=== PATIENT | female | born 1985 | race Caucasian/White ===

== ENCOUNTER 2020-05-12 10:07 | Inpatient (IN) | payer OTHER, SELFPAY ==
[2020-05-12] VITALS (149 sets, daily range): BP systolic 77–135; BP diastolic 40–102; PULSE 66–271; RESP 16–20; TEMP 36.4–37.3; O2SAT 95–100; BMI 33.0
--- NOTE | 2020-05-12 11:30 | LDADM ---
This patient, Mary Beth Abernathy, was admitted to Labor/Delivery/Recovery 109 on 05/12/20 at 10:07. Plans for labor, pain management and were discussed with patient. Patient/family oriented to hospital policies and general routines including ID bracelet, bed and alarms, visiting hours, pain management, procedures, bathroom and other care routines, personal items, smoking policy, room service/diet and guest tray routines, security routines, and visiting hours. Patient/Family are encouraged to report perceived risks to care and to ask questions if they do not understand what they are told or what they should do. See OBIX for further documentation.
[2020-05-12 11:53] LABS: Basophils Percent Auto 0.4 % (0.2-1.2); Eosinophils Absolute Auto 0.1 K/mm3 (0-0.3); Eosinophils Percent Auto 0.6 % (0-4.4); Hematocrit 29.4 % (37.0-47.0); Hemoglobin 9.8 g/dL (12.0-15.0); Immature Granulocyte Absolute 0.11 K/mm3 (0.00-0.031); Lymphocytes Absolute Auto 2.09 K/mm3 (0.9-3.2); Lymphocytes Percent Auto 19.3 % (18.3-44.2); Mean Corpuscular HGB Conc 33.3 g/dl (32-36); Mean Corpuscular Hemoglobin 27.5 pg (26-34); Mean Corpuscular Volume 82.6 fl (80-100); Mean Platelet Volume 11.6 fl (7.4-10.4); Monocytes Absolute Auto 0.9 K/mm3 (0.1-0.6); Monocytes Percent Auto 7.8 % (2.6-8.5); Neutrophils Absolute Auto 7.7 K/mm3 (1.3-6.7); Neutrophils Percent Auto 70.9 % (45.5-73.1); Platelet Count Result 194 k/mm3 (150-375); Red Blood Count 3.56 M/mm3 (4.2-5.4); White Blood Count 10.9 K/mm3 (4.5-10.0)
[2020-05-12] MEDS: LACTATED RINGERS 1,000 ML 125 ML IV CONT ×3 (11:54→16:09)
[2020-05-12] MEDS: OXYTOCIN 30 UNITS/NS 500 ML 30 UNITS/500 ML BAG IV CONT (11:54)
--- NOTE | 2020-05-12 12:16 | PM.OBPNLAB ---
Pain Control Date/time seen: 05/12/20 12:16 SVE /-2 AROM small amount of odorless fluid
--- NOTE | 2020-05-12 12:22 | WPDANESEPP ---
Anes - Eval Pre Procedure Date/Time: 05/12/20 12:22 Pre Op Diagnosis: Induction of Labor Patient Data Age: 34 Gender: F Height: Weight: Last Vital Signs Pulse 83 05/12/20 12:00 BP 129/74 05/12/20 12:00 Allergies Allergy/AdvReac Type Severity Reaction Status Date / Time Sulfa (Sulfonamide Allergy Severe THROAT Verified 07/31/17 20:45 Antibiotics) SWELLING Home Medications Medication Instructions Recorded Confirmed Type PNV cmb#95-ferrous fumarate-FA 1 tablet PO DAILY 04/20/20 04/20/20 History [] ferrous sulfate [Iron (ferrous 325 mg PO DAILY 04/20/20 04/20/20 History sulfate)] Laboratory Tests 05/12/20 05/12/20 11:36 11:36 WBC 10.9 K/mm3 H K/mm3 (4.5-10.0) RBC 3.56 M/mm3 L M/mm3 (4.2-5.4) Hgb 9.8 g/dL L g/dL (12.0-15.0) Hct 29.4 % L % (37.0-47.0) MCV 82.6 fl fl (80-100) MCH 27.5 pg pg (26-34) MCHC 33.3 g/dl g/dl (32-36) RDW 14.0 % % (11.5-14.5) Plt Count 194 k/mm3 k/mm3 (150-375) MPV 11.6 fl H fl (7.4-10.4) Immature Gran % (Auto) 1.0 % H % (0-0.5) Neut % (Auto) 70.9 % % (45.5-73.1) Lymph % (Auto) 19.3 % % (18.3-44.2) [place] % (Auto) 7.8 % % (2.6-8.5) Eos % (Auto) 0.6 % % (0-4.4) Baso % (Auto) 0.4 % % (0.2-1.2) Lymph # (Auto) 2.09 K/mm3 K/mm3 (0.9-3.2) [place] # (Auto) 0.9 K/mm3 H K/mm3 (0.1-0.6) Eos # (Auto) 0.1 K/mm3 K/mm3 (0-0.3) Baso # (Auto) 0.0 K/mm3 K/mm3 (0.0-0.1) Abs Immat Gran (auto) 0.11 K/mm3 H K/mm3 (0.00-0.031) Absolute Neuts (auto) 7.7 K/mm3 H K/mm3 (1.3-6.7) Absolute Nucleated RBC 0.0 K/mm3 K/mm3 (0.0-0.012) Nucleated RBC % 0.0 % % (0.0-0.2) RPR Pending [facility] Family History Family History (Updated 04/20/20 @ 16:06 by Marylou Daniels RN) Mother Asthma Father Diabetes mellitus Prostate carcinoma Grandparent Diabetes mellitus Social History Social History Substance use: never Gender identity (if verbalized by the patient): Female Spiritual care concerns: No ([employer]) Exam Day of Procedure 05/12/20 12:22
[2020-05-12] MEDS: ePHEDrine sulfate INJ 50 MG/ML AMPUL (14:10)
--- NOTE | 2020-05-12 14:14 | WPDANESEPPF ---
Anes - Initial Pre Proc Eval Date/Time: 05/12/20 14:14 Surgeon: John Sears MD Pre Op Diagnosis: Induction of Labor Patient Data Age: 34 Gender: F Height: 5 ft 4 in Weight: 87.3 kg Last Vital Signs Temp 37.3 C 05/12/20 11:54 Pulse 82 05/12/20 14:12 BP 107/60 05/12/20 14:12 Pulse Ox 100 05/12/20 14:13 Allergies Allergy/AdvReac Type Severity Reaction Status Date / Time Sulfa (Sulfonamide Allergy Severe THROAT Verified 07/31/17 20:45 Antibiotics) SWELLING Home Medications Medication Instructions Recorded Confirmed Type PNV cmb#95-ferrous fumarate-FA 1 tablet PO DAILY 04/20/20 04/20/20 History [] ferrous sulfate [Iron (ferrous 325 mg PO DAILY 04/20/20 05/12/20 History sulfate)] Laboratory Tests 05/12/20 05/12/20 05/12/20 11:36 11:36 11:36 WBC 10.9 K/mm3 H K/mm3 (4.5-10.0) RBC 3.56 M/mm3 L M/mm3 (4.2-5.4) Hgb 9.8 g/dL L g/dL (12.0-15.0) Hct 29.4 % L % (37.0-47.0) MCV 82.6 fl fl (80-100) MCH 27.5 pg pg (26-34) MCHC 33.3 g/dl g/dl (32-36) RDW 14.0 % % (11.5-14.5) Plt Count 194 k/mm3 k/mm3 (150-375) MPV 11.6 fl H fl (7.4-10.4) Immature Gran % (Auto) 1.0 % H % (0-0.5) Neut % (Auto) 70.9 % % (45.5-73.1) Lymph % (Auto) 19.3 % % (18.3-44.2) [place] % (Auto) 7.8 % % (2.6-8.5) Eos % (Auto) 0.6 % % (0-4.4) Baso % (Auto) 0.4 % % (0.2-1.2) Lymph # (Auto) 2.09 K/mm3 K/mm3 (0.9-3.2) [place] # (Auto) 0.9 K/mm3 H K/mm3 (0.1-0.6) Eos # (Auto) 0.1 K/mm3 K/mm3 (0-0.3) Baso # (Auto) 0.0 K/mm3 K/mm3 (0.0-0.1) Abs Immat Gran (auto) 0.11 K/mm3 H K/mm3 (0.00-0.031) Absolute Neuts (auto) 7.7 K/mm3 H K/mm3 (1.3-6.7) Absolute Nucleated RBC 0.0 K/mm3 K/mm3 (0.0-0.012) Nucleated RBC % 0.0 % % (0.0-0.2) RPR Pending Blood Type A Positive Antibody Screen Negative Patient hx anesthesia problems: none Family hx anesthesia problems: none PMFSH Past Medical History Medical History Anemia Gestational diabetes Spina bifida occulta Family History Family History Mother Asthma Father Diabetes mellitus Prostate carcinoma Grandparent Diabetes mellitus Sibling , Colon cancer Social History Social History Years smoked: 13 Smoking status: Former smoker Tobacco type: cigarettes Substance use: never Gender identity (if verbalized by the patient): Female Spiritual care concerns: No ([employer]) Anes - Eval Final PreProcedure Day of Procedure 05/12/20 14:14 Patient weight: obese Heart: regular rate and rhythm Lungs: clear to auscultation Neurological: alert and oriented ASA classification: III Emergent: no Anesthetic plan: proceed Anesthesia type and monitoring: regional (discussed risks of inadequate block, spinal injury, post dural puncture headache) epidural and standard monitoring Informed Consent: The patient's anesthetic plan and its attendant risks and benefits were discussed with the patient/family/POA. Questions were solicited and answers provided to the satisfaction of the patient/family/POA.
[2020-05-12] MEDS: OXYTOCIN 30 UNITS/NS 500 ML 30 UNITS/500 ML BAG 125 UNITS IV CONT (20:56)
--- NOTE | 2020-05-12 21:08 | P.PCNOB_ITS ---
OB - Delivery Note Procedure Delivery date: 05/12/20 Procedure: vaginal delivery Intrapartal events: None Induction method: AROM and per pitocin protocol Delivery monitor: external FHT and external uterine Route of delivery: Laceration description: None Specimen: Yes Estimated blood loss (mL): 80 Anesthesia type: Epidural Disposition: other () [place] Baby Date of : 05/12/20 Time of : 20:24 Weeks of gestation at delivery: 40 gender: Female Weight (pounds): 7 Weight (ounces): 13 presentation: vertex position: Left Occiput Anterior cord vessel description: 3 Vessels and Clamped/Cut score one minute: 8 score five minutes: 9
[2020-05-12] MEDS: WITCH HAZEL 40 PADS 1 PAD TOPICAL (22:51)
[2020-05-12] MEDS: BENZOCAINE 20% AER SPR (*SP) 56 GM CAN 1 SPRAY TOPICAL (22:51)
[2020-05-13] MEDS: IBUPROFEN 600 MG TABLET PO ×3 (00:11→16:30)
[2020-05-13 05:16] LABS: Hematocrit 26.3 % (37.0-47.0); Hemoglobin 8.8 g/dL (12.0-15.0)
[2020-05-13] MEDS: MULTIVIT/MIN/PREN/FOL AC/IRON TABLET 1 TAB PO (06:40)
[2020-05-13] MEDS: POLYSACCHARIDE IRON COMPLEX 150 MG CAPSULE PO ×2 (06:40→16:30)
[2020-05-13] MEDS: DOCUSATE SODIUM 100 MG CAPSULE PO (06:40)
--- NOTE | 2020-05-13 07:30 | P.PNOB_ITS ---
OB - PN: Subj Subjective Date/time seen: 05/13/20 07:30 Patient comments: no complaints baby status: doing well OB - PN: Obj Data Labs CBC & Chem 7: 05/13/20 04:44 Labs: Laboratory Results - last 24 hr 05/12/20 05/12/20 05/13/20 11:36 11:36 04:44 WBC 10.9 H RBC 3.56 L Hgb 9.8 L 8.8 L Hct 29.4 L 26.3 L MCV 82.6 MCH 27.5 MCHC 33.3 RDW 14.0 Plt Count 194 MPV 11.6 H Immature Gran % (Auto) 1.0 H Neut % (Auto) 70.9 Lymph % (Auto) 19.3 [place] % (Auto) 7.8 Eos % (Auto) 0.6 Baso % (Auto) 0.4 Lymph # (Auto) 2.09 [place] # (Auto) 0.9 H Eos # (Auto) 0.1 Baso # (Auto) 0.0 Abs Immat Gran (auto) 0.11 H Absolute Neuts (auto) 7.7 H Absolute Nucleated RBC 0.0 Nucleated RBC % 0.0 Blood Type A Positive Antibody Screen Negative OB - PN A/P Plan day: 1 Plan: discharge home Time Spent With Patient Time: Total time spent is greater than 50% in coordination of care (as marco leahy) at patient's floor/unit and/or counseling patient: Exam Const: General: comfortable Resp: Effort & Inspection: normal respiratory effort Psych: Appearance: grossly normal Affect: normal affect
[2020-05-13 08:00] VITALS: BP 100/65; PULSE 67; RESP 16; TEMP 36.6; O2SAT 100
[2020-05-13] MEDS: ACETAMINOPHEN 325 MG TABLET 650 MG PO (09:14)
--- NOTE | 2020-05-13 11:01 | WPDANLDPN2 ---
Anes-Prog Note L&D Date/Time: 05/13/20 11:01 Comfortable throughout: labor and delivery Neuraxial method: epidural Epidural/Spinal procedure site: clean & non-tender Neuro status: Neuro function grossly intact. Cardiovascular status: normal Respiratory status: normal Airway patency: baseline Mental status: baseline Post-Op hydration status: normal Vital Signs: Last Vital Signs Temp 36.6 C 05/13/20 08:00 Pulse 67 05/13/20 08:00 Resp 16 05/13/20 08:00 BP 100/65 05/13/20 08:00 Pulse Ox 100 05/13/20 08:00 I/O: Intake & Output 05/12/20 05/13/20 05/13/20 23:59 07:59 15:59 Intake Total 2100 Output Total 93 Balance 2007 Post-procedural complaints: none Patient feedback: Patient satisfied with anesthetic care.
[2020-05-13] MEDS: CYCLOBENZAPRINE HCL 10 MG TABLET PO (13:20)
[2020-05-13] MEDS: MEASLES,MUMPS,RUBELLA VACCINE 0.5 ML VIAL SUB-Q (16:33)
[2020-05-15 09:50] LABS: Rapid Plasma Reagin Non-Reactive (NonReactive)
--- NOTE | 2020-05-17 17:43 | P.DS_ITS ---
DS: Admitting Diagnosis Admitting Diagnosis Admitting Diagnosis: Induction of Labor OB - DS: Summary OB Procedures : None OB Procedures Intrapartum: Spontaneous Vag Delivery OB Procedures: : None Time Spent with Patient Time attestation: Total time spent providing and/or coordinating discharge services: DS: Data Data Completed and Pending Completed studies during hospitalization: Pending at discharge 05/12/20 20:29 Surgical [PTH] Routine Discharge Plan Discharge Attending physician on discharge: John Sears Consulting providers: Trinidad Tse ; Reid Barrera Discharging Clinician: Trinidad Tse Patient Disposition: Home, Self-Care Activity: pelvic rest Diet: regular Discharge Instructions: Education: Mom and Baby Guide Given to: Mother Follow-Up: Call your delivering provider's office for an appointment to be seen in: 4 Weeks Mom and baby should come to the [facility] for the follow-up appointment. Appointment Date/Time: May 15, 2020 at 10:00 am What to expect at your follow-up visit: Blood Pressure Check Physical Assessment Call [phone] if you are unable to keep your appointment time. BREAST CARE: * Wear a snug supportive bra. * For engorgement discomfort: Bottle Feeding: * May apply ice packs PERINEAL CARE: * Until bleeding stops, use your toshia bottle after urinating * Change your pad frequently throughout the day * You may take sitz baths several times a day (fill your bathtub with warm water and soak for 20 minutes.) Do NOT bathe in the water * No tub baths until seen by your physician - You may shower ACTIVITY: * Rest as much as possible. * Do not exercise or lift anything heavier than your baby (such as laundry or o ther children.) * Avoid stairs or driving as much as possible. * Do not put anything into the vagina. No douching, tampons, or sexual activity until seen by physician. NOTIFY PHYSICIAN IF YOU HAVE ANY QUESTIONS OR IF ANY OF THE FOLLOWING SYMPTOMS OCCUR: * If your episiotomy or incision becomes red, swollen, or more painful than what you have experienced in the hospital. * If your vaginal bleeding becomes foul smelling. * If your vaginal bleeding becomes more heavy than a period or if your bleeding changes from pink to bright red. However, you may pass an occasional walnut- sized clot once or twice for the first week . * If you experience a sharp, shooting pain in your calves. * If you discover a hard, reddened area on your breast or if you experience flu- like symptoms. DIET: Eat regular, well-balanced meals. * Drink plenty of fluids daily. Stand Alone Forms: General Discharge Information Follow-up/Referrals: Trinidad Tse CNM [Primary Care Provider] - 4 Weeks Discharge Medications: Continued PNV cmb#95-ferrous fumarate-FA [] 28 mg iron- 800 mcg Tablet 1 tablet PO DAILY RF: 0 Discontinued ferrous sulfate [Iron (ferrous sulfate)] 325 mg (65 mg iron) Tablet 325 mg PO DAILY RF: 0 Date of admission: 05/12/20 10:07 Primary Care Provider: Trinidad Tse Admitting Provider: John Sears Discharge Date/Time: 05/13/20 21:45 Attending physician on admission: John Sears
== END 2020-05-13 21:45 | disposition home or self-care (01) | DRG 560 ==
LOC: ANHLDR 10:11 → ANHOB2 23:15
PROVIDERS: Admitting Provider Obstetrics & Gynecology; PCP Advanced Practice Midwife; Visit Provider Obstetrics & Gynecology
DX: O43.113 Circumvallate placenta, third trimester (principal); Z37.0 Single live birth; Z3A.40 40 weeks gestation of pregnancy; O99.02 Anemia complicating childbirth; D64.9 Anemia, unspecified; E66.9 Obesity, unspecified; O99.214 Obesity complicating childbirth; O99.89 Other specified diseases and conditions complicating pregnancy, childbirth and the puerperium; Q76.0 Spina bifida occulta
CPT/HCPCS: 36415; 85014; 85018; 85025; 86592; 86850; 86900; 86901; 88307; 90710; A9270; J2590; J2795; J7120